=== PATIENT | female | born 1995 | race Two or more races ===

== ENCOUNTER 2018-12-28 17:17 | Observation (INO) | payer SELFPAY ==
[2018-12-28 18:27] LABS: BILIRUBIN,URINE NEGATIVE (NEG); CLARITY,URINE CLEAR; COLOR,URINE YELLOW; NITRITE,URINE NEGATIVE (NEG); PH,URINE 6.5; PROTEIN,URINE NEGATIVE (NEG-TRACE)
[2018-12-28 18:43] LABS: BACTERIA,URINE FEW /HPF (0-FEW); RBC,URINE 0 /HPF (0-2); SQUAMOUS EPITHELIAL CELL,UR OCC /LPF
[2018-12-28] MEDS ORDERED: IV RINGERS,LACTATED 1000ML 1,000 ML IV PRN (19:30)
== END 2018-12-28 19:37 | disposition home or self-care (01) ==
LOC: 3 SO LND 17:17
PROVIDERS: ADMIT Obstetrics & Gynecology; ATTEND Obstetrics & Gynecology
DX: O62.9 Abnormality of forces of labor, unspecified (principal); O26.893 Other specified pregnancy related conditions, third trimester; K62.89 Other specified diseases of anus and rectum; Z3A.39 39 weeks gestation of pregnancy
CPT/HCPCS: 81001; 87086; G0378; G0379

== ENCOUNTER 2018-12-30 18:01 | Inpatient (IN) | payer SELFPAY ==
[~2018-12-30] VITALS: Ht 162.6 cm; Wt 65.8 kg
[2018-12-30] MEDS ORDERED: ONDANSETRON PF 4 MG/2 ML VIAL. IV PRN (18:15)
[2018-12-30] MEDS ORDERED: fentaNYL PF VIAL 100 MCG/2 ML VIAL IV PRN (18:15)
[2018-12-30] MEDS ORDERED: TERBUTALINE 1 MG/ML VIAL. SQ PRN (18:15)
[2018-12-30] MEDS ORDERED: ZOLPIDEM 5 MG TABLET. PO PRN (18:15)
[2018-12-30] MEDS ORDERED: CITRIC ACID/SODIUM CITRATE 30 ML SOLUTION. PO PRN (18:15)
[2018-12-30] MEDS ORDERED: ACETAMINOPHEN 325 MG TABLET. PO PRN (18:15)
[2018-12-30] MEDS ORDERED: OXYTOCIN 30 UNIT/500 ML PREMIX 500 ML IV PRN ×3 (18:15)
[2018-12-30] MEDS ORDERED: DOCUSATE SODIUM 283 MG/5 ML ENEMA. PR PRN (18:15)
[2018-12-30] MEDS ORDERED: LIDOCAINE 1% PF 30 ML VIAL. INJ PRN (18:15)
[2018-12-30] MEDS ORDERED: IBUPROFEN 400 MG TABLET. PO PRN (18:15)
[2018-12-30] MEDS ORDERED: 0.9 % SODIUM CHLORIDE 10 ML DISP.SYRIN. IV PRN (18:15)
[2018-12-30] MEDS ORDERED: NALBUPHINE 10 MG/ML AMPUL. IV PRN ×2 (18:15)
[2018-12-30] MEDS ORDERED: MAG HYDROX/ALUMINUM HYD/SIMETH 30 ML ORAL.SUSP PO PRN (18:15)
[2018-12-30 18:27] LABS: BILIRUBIN,URINE NEGATIVE (NEG); CLARITY,URINE CLEAR; COLOR,URINE AMBER; NITRITE,URINE NEGATIVE (NEG); PH,URINE 6.5; PROTEIN,URINE NEGATIVE (NEG-TRACE)
[2018-12-30] MEDS ORDERED: DINOPROSTONE 10 MG SUPP.VAG VG ONE (18:30)
[2018-12-30] MEDS: IV RINGERS,LACTATED 1000ML 1,000 ML IV SCH (18:51)
[2018-12-30 18:54] LABS: BACTERIA,URINE FEW /HPF (0-FEW); SQUAMOUS EPITHELIAL CELL,UR MOD /LPF
[2018-12-30 19:12] LABS: BASO % 0 % (0-3); EOS % 0 % (0-3); HEMOGLOBIN 8.9 g/dL (12.0-15.5); LYMPH % 28 % (24-48); MEAN CORPUSCULAR HEMOGLOBIN 21 pg (25-35); MEAN CORPUSCULAR HGB CONC 31 g/dL (31-37); MEAN CORPUSCULAR VOLUME 69 fL (79-100); MONO # 0.6 x10^3/uL (0.0-1.1); MONO % 5 % (0-9); NEUT # 7.2 x10^3/uL (1.8-7.7); NEUT % 67 % (31-73); PLATELET COUNT 365 x10^3/uL (140-400); RED CELL DISTRIBUTION WIDTH 19.6 % (11.5-14.5); WHITE BLOOD COUNT 10.8 x10^3/uL (4.0-11.0)
[2018-12-30 19:30] VITALS: BP 121/70
[2018-12-30] MEDS ORDERED: diphenhydrAMINE HCL 25 MG CAPSULE PO PRN (19:30)
[2018-12-30 19:45] LABS: ANISOCYTOSIS SLIGHT; HYPOCHROMIA MOD; MICROCYTOSIS MARKED; PLT ESTIMATE ADEQUATE (ADEQUATE)
[2018-12-31] MEDS: IV RINGERS,LACTATED 1000ML 1,000 ML IV SCH (05:40)
[2018-12-31] MEDS ORDERED: L&D EPIDURAL SYRINGE 50 ML ONE ×2 (07:30→10:53)
[2018-12-31] MEDS ORDERED: ROPIVacaine 0.2% PF 10 ML VIAL. ONE ×2 (07:30→08:00)
[2018-12-31] MEDS ORDERED: L&D EPIDURAL 50 ML SYRINGE. ONE (08:00)
--- NOTE | 2018-12-31 09:54 | PDOC1 ---
OB - History Hx of Present Care: Good Care Ultrasounds: Normal mid trimester US Obstetrical Complications: None Medical Complications: None Past Family/Social History * Past Medical, Surgical, Family and Obstetric Histories reviewed from chart. Rubella: Immune RPR/VDRL: Negative GBS Status: Positive HBsAG: Negative OB - Chief Complaint & HPI Date of Admission: Date of Admission: Dec 30, 2018 at 18:01 Chief Complaint/History : 1 Para: 0 EGA: 39 Reason for admission: induction of labor Indication for induction: maternal discomfort Admission Nurse Assessment Rev: Yes OB - Admission Exam Physical Exam Vitals: VS - Last 72 Hours, by Label Date Time Temp Pulse Resp B/P (MAP) Pulse Ox O2 Delivery O2 Flow Rate FiO2 12/30/18 19:30 97.7 99 18 121/70 (87) Room Air 97.7 HEENT: Normal Heart: Regular Rate Lungs: Clear Abdomen: Gravid, Non tender, Soft Extremities: Edema Reflexes: Normal Cervical Dilatation: 2cm Effacement: 75% Station: -3 Membranes: Intact Heart Rate: Normal Accelerations: Accelerations Present Decelerations: No decelerations Contractions on Admission: >10 Minutes Apart Text A: 39 wks IUP GBS positive IOL secondary maternal discomforts of P: Admit for cervidil induction, then pitocin in am with Pen G prophylaxis. ROSE CASTELLON Jr, MD Dec 31, 2018 09:54
[2018-12-31] MEDS ORDERED: IV RINGERS,LACTATED 1000ML 1,000 ML IV SCH (10:54)
[2018-12-31] MEDS ORDERED: NALOXONE 0.4 MG/ML VIAL. IV PRN (11:00)
[2018-12-31] MEDS ORDERED: ePHEDrine PF IN SALINE 50 MG/10 ML SYRINGE. IV PRN (11:00)
[2018-12-31] MEDS ORDERED: L&D EPIDURAL CASSETTE 100 ML EPID PRN (11:00)
[2018-12-31] MEDS ORDERED: ROPIVacaine 0.2% IN 0.9%NACL PF 40 MG/20 ML DISP.SYRIN. EPID PRN (11:00)
--- NOTE | 2018-12-31 12:20 | PDOC ---
VAGINAL DELIVERY DATE DATE: 12/31/18 TIME: 12:19 : 1 Para: 1 EGA: 39 VAGINAL DELIVERY: VTX VACCUM ASSISTED: No PLACENTA: Spontaneous 8/9 SEX: Male WEIGHT Weight [ 3390 gm] Nuchal Cord: Yes, Times 1 Amniotic Fluid: Clear PAIN: Epidural EPISIOTOMY: No EXTENSION: Yes (2nd degree midline laceration) REPAIRED WITH 2-0 vycril EBL 300 ml COMPLICATIONS none CONDITION pt. stable Signs of Intrauterine Infectio: None Shoulder Dystocia: No ROSE CASTELLON Jr, MD Dec 31, 2018 12:20
[2018-12-31] MEDS ORDERED: MMR per PROTOCOL. MC PRN (12:30)
[2018-12-31] MEDS ORDERED: PHENYLEPH/MINERAL OIL/PETROLAT RECTAL OINTMENT TUBE. RC PRN (12:30)
[2018-12-31] MEDS ORDERED: MAG HYDROX/ALUMINUM HYD/SIMETH 30 ML ORAL.SUSP PO PRN (12:30)
[2018-12-31] MEDS ORDERED: 0.9 % SODIUM CHLORIDE 10 ML DISP.SYRIN. IV PRN (12:30)
[2018-12-31] MEDS ORDERED: SIMETHICONE 80 MG TAB.CHEW PO PRN (12:30)
[2018-12-31] MEDS ORDERED: ACETAMINOPHEN 325 MG TABLET. PO PRN (12:30)
[2018-12-31] MEDS ORDERED: HYDROCORTISONE 1% TOPICAL OINTMENT 30GM TUBE. TP PRN (12:30)
[2018-12-31] MEDS ORDERED: ZOLPIDEM 5 MG TABLET. PO PRN (12:30)
[2018-12-31] MEDS ORDERED: oxyCODONE/APAP 5/325 1 TAB TABLET PO PRN (12:30)
[2018-12-31] MEDS ORDERED: BENZOCAINE 20% TOPICAL AEROSOL SPRAY 57GM CAN. TP PRN (12:30)
[2018-12-31] MEDS ORDERED: MAGNESIUM HYDROXIDE 2,400 MG/30 ML ORAL.SUSP. PO PRN (12:30)
[2018-12-31] MEDS ORDERED: diphenhydrAMINE HCL 25 MG CAPSULE PO PRN (12:30)
[2018-12-31] MEDS ORDERED: OXYTOCIN 30 UNIT/500 ML PREMIX 500 ML IV PRN (12:30)
[2018-12-31] MEDS: IBUPROFEN 400 MG TABLET. PO PRN ×2 (14:31→22:59)
[2018-12-31] MEDS ORDERED: L&D EPIDURAL SYRINGE 50 ML EPID PRN (14:45)
[2018-12-31 15:04] VITALS: BP 109/68
[2018-12-31 16:00] VITALS: BP 114/63
[2018-12-31 20:40] VITALS: BP 100/64
[2018-12-31 23:50] VITALS: BP 102/46
[2019-01-01 05:51] LABS: BASO % 0 % (0-3); EOS % 0 % (0-3); HEMATOCRIT 21.7 % (36.0-47.0); LYMPH # 2.9 x10^3/uL (1.0-4.8); LYMPH % 21 % (24-48); MEAN CORPUSCULAR HEMOGLOBIN 22 pg (25-35); MEAN CORPUSCULAR HGB CONC 32 g/dL (31-37); MEAN CORPUSCULAR VOLUME 71 fL (79-100); MONO # 0.8 x10^3/uL (0.0-1.1); MONO % 6 % (0-9); NEUT # 10.1 x10^3/uL (1.8-7.7); NEUT % 72 % (31-73); PLATELET COUNT 283 x10^3/uL (140-400); RED BLOOD COUNT 3.07 x10^6/uL (3.50-5.40); WHITE BLOOD COUNT 13.9 x10^3/uL (4.0-11.0)
[2019-01-01 05:53] VITALS: BP 82/39
[2019-01-01 06:17] LABS: HEMOGLOBIN 6.9 g/dL (12.0-15.5)
[2019-01-01 08:27] VITALS: BP 100/59
[2019-01-01] MEDS: FERROUS SULFATE 325 MG TABLET. PO SCH ×2 (09:24→22:25)
[2019-01-01] MEDS: IBUPROFEN 400 MG TABLET. PO PRN ×2 (11:58→22:25)
[2019-01-01 12:02] VITALS: BP 103/64
--- NOTE | 2019-01-01 13:30 | PDOC ---
OB Progress Note Date of Service 01/01/19 Time of Evaluation 1330 Notes Pt. feeling well. Pain controlled. No complaints. Lab Laboratory Tests Test 12/30/18 18:15 12/30/18 18:46 01/01/19 05:17 Urine Collection Type Unknown Urine Color Marie Urine Clarity Clear Urine pH 6.5 Urine Specific [place] 1.020 Urine Protein Negative mg/dL (NEG-TRACE) Urine Glucose (UA) Negative mg/dL (NEG) Urine Ketones (Stick) Negative mg/dL (NEG) Urine Blood Negative (NEG) Urine Nitrite Negative (NEG) Urine Bilirubin Negative (NEG) Urine Urobilinogen Dipstick 1.0 mg/dL (0.2 mg/dL) Urine Leukocyte Esterase Moderate (NEG) Urine RBC 3-5 /HPF (0-2) Urine WBC 5-10 /HPF (0-4) Urine Squamous Epithelial Cells Mod /LPF Urine Bacteria Few /HPF (0-FEW) Urine Mucus Mod /LPF White Blood Count 10.8 x10^3/uL (4.0-11.0) 13.9 x10^3/uL (4.0-11.0) Red Blood Count 4.20 x10^6/uL (3.50-5.40) 3.07 x10^6/uL (3.50-5.40) Hemoglobin 8.9 g/dL (12.0-15.5) 6.9 g/dL (12.0-15.5) Hematocrit 29.0 % (36.0-47.0) 21.7 % (36.0-47.0) Mean Corpuscular Volume 69 fL (79-100) 71 fL (79-100) Mean Corpuscular Hemoglobin 21 pg (25-35) 22 pg (25-35) Mean Corpuscular Hemoglobin Concent 31 g/dL (31-37) 32 g/dL (31-37) Red Cell Distribution Width 19.6 % (11.5-14.5) 20.0 % (11.5-14.5) Platelet Count 365 x10^3/uL (140-400) 283 x10^3/uL (140-400) Neutrophils (%) (Auto) 67 % (31-73) 72 % (31-73) Lymphocytes (%) (Auto) 28 % (24-48) 21 % (24-48) Monocytes (%) (Auto) 5 % (0-9) 6 % (0-9) Eosinophils (%) (Auto) 0 % (0-3) 0 % (0-3) Basophils (%) (Auto) 0 % (0-3) 0 % (0-3) Neutrophils # (Auto) 7.2 x10^3/uL (1.8-7.7) 10.1 x10^3/uL (1.8-7.7) Lymphocytes # (Auto) 3.0 x10^3/uL (1.0-4.8) 2.9 x10^3/uL (1.0-4.8) Monocytes # (Auto) 0.6 x10^3/uL (0.0-1.1) 0.8 x10^3/uL (0.0-1.1) Eosinophils # (Auto) 0.0 x10^3/uL (0.0-0.7) 0.0 x10^3/uL (0.0-0.7) Basophils # (Auto) 0.0 x10^3/uL (0.0-0.2) 0.0 x10^3/uL (0.0-0.2) Platelet Estimate Adequate (ADEQUATE) Hypochromasia Mod Anisocytosis Slight Microcytosis Marked Treponema pallidum Antibody Nonreactive (Nonreactive) Laboratory Tests Test 01/01/19 05:17 White Blood Count 13.9 x10^3/uL (4.0-11.0) Red Blood Count 3.07 x10^6/uL (3.50-5.40) Hemoglobin 6.9 g/dL (12.0-15.5) Hematocrit 21.7 % (36.0-47.0) Mean Corpuscular Volume 71 fL (79-100) Mean Corpuscular Hemoglobin 22 pg (25-35) Mean Corpuscular Hemoglobin Concent 32 g/dL (31-37) Red Cell Distribution Width 20.0 % (11.5-14.5) Platelet Count 283 x10^3/uL (140-400) Neutrophils (%) (Auto) 72 % (31-73) Lymphocytes (%) (Auto) 21 % (24-48) Monocytes (%) (Auto) 6 % (0-9) Eosinophils (%) (Auto) 0 % (0-3) Basophils (%) (Auto) 0 % (0-3) Neutrophils # (Auto) 10.1 x10^3/uL (1.8-7.7) Lymphocytes # (Auto) 2.9 x10^3/uL (1.0-4.8) Monocytes # (Auto) 0.8 x10^3/uL (0.0-1.1) Eosinophils # (Auto) 0.0 x10^3/uL (0.0-0.7) Basophils # (Auto) 0.0 x10^3/uL (0.0-0.2) Medications Current Medications Sodium Chloride (Normal Saline Flush) 3 ml QSHIFT PRN IV AFTER MEDS AND BLOOD DRAWS; Start 12/30/18 at 18:15; Stop 12/31/18 at 12:22; Status DC Ringer's Solution 1,000 ml @ 125 mls/hr Q8H IV Last administered on 12/31/18at 05:40; Start 12/30/18 at 18:06; Stop 12/31/18 at 12:25; Status DC Nalbuphine HCl (Nubain) 5 mg PRN Q1HR PRN IV Mild to moderate labor pain; Start 12/30/18 at 18:15 Nalbuphine HCl (Nubain) 10 mg PRN Q1HR PRN IV Severe labor pain; Start 12/30/18 at 18:15 Fentanyl Citrate (Fentanyl 2ml Vial) 50 mcg PRN Q30MIN PRN IV Mild to moderate pain; Start 12/30/18 at 18:15 Acetaminophen (Tylenol) 650 mg PRN Q6HRS PRN PO MILD PAIN / TEMP; Start 12/30/18 at 18:15; Stop 12/31/18 at 12:25; Status DC Ondansetron HCl (Zofran) 4 mg PRN Q4HRS PRN IV NAUSEA/VOMITING; Start 12/30/18 at 18:15 Al Hydroxide/Mg Hydroxide (Mylanta Plus Xs) 30 ml PRN Q4HRS PRN PO HEARTBURN / GAS; Start 12/30/18 at 18:15; Stop 12/31/18 at 12:25; Status DC Citric Acid/ Sodium Citrate (Bicitra) 30 ml 1X PRN PRN PO DYSPEPSIA; Start 12/30/18 at 18:15; Stop 12/31/18 at 18:14; Status DC Zolpidem Tartrate (Ambien) 5 mg PRN QHS PRN PO INSOMNIA; Start 12/30/18 at 18:15; Stop 12/31/18 at 12:24; Status DC Terbutaline Sulfate (Brethine) 0.25 mg 1X PRN PRN SQ SEE COMMENTS; Start 12/30/18 at 18:15; Stop 12/31/18 at 18:14; Status DC Lidocaine HCl (Xylocaine 1% Pf 30ml Vial) 30 ml 1X PRN PRN INJ SEE COMMENTS; Start 12/30/18 at 18:15; Stop 01/01/19 at 18:14 Oxytocin/Sodium Chloride 500 ml @ 0 mls/hr CONT PRN IV SEE I/O RECORD Last administered on 12/31/18at 05:40; Start 12/30/18 at 18:15; Stop 12/31/18 at 12:25; Status DC Oxytocin/Sodium Chloride 500 ml @ 0 mls/hr CONT PRN IV SEE I/O RECORD; Start 12/30/18 at 18:15; Stop 12/31/18 at 12:25; Status DC Oxytocin/Sodium Chloride 500 ml @ 0 mls/hr CONT PRN PRN IV Post delivery bleeding; Start 12/30/18 at 18:15 Ibuprofen (Motrin) 800 mg PRN Q6HRS PRN PO PAIN; Start 12/30/18 at 18:15; Stop 12/31/18 at 12:23; Status DC Docusate Sodium (Enemeez) 283 mg PRN DAILY PRN RI CONSTIPATION; Start 12/30/18 at 18:15 Dinoprostone (Cervidil) 10 mg 1X ONCE VG Last administered on 12/30/18at 19:12; Start 12/30/18 at 18:30; Stop 12/30/18 at 18:31; Status DC Diphenhydramine HCl (Benadryl) 25 mg PRN QHS PRN PO INSOMNIA Last administered on 12/31/18at 00:53; Start 12/30/18 at 19:30 Ropivacaine (Naropin 0.2%) 10 ml STK-MED ONCE .ROUTE ; Start 12/31/18 at 07:30; Stop 12/31/18 at 07:31; Status DC Fentanyl Citrate 50 ml @ As Directed STK-MED ONCE .ROUTE ; Start 12/31/18 at 07:30; Stop 12/31/18 at 07:31; Status DC Fentanyl Citrate (Xghlcxgj-Fegwc-PC 3 Mcg-0.1%) 50 ml STK-MED ONCE .ROUTE ; Start 12/31/18 at 08:00; Stop 12/31/18 at 08:53; Status DC Ropivacaine (Naropin 0.2%) 10 ml STK-MED ONCE .ROUTE ; Start 12/31/18 at 08:00; Stop 12/31/18 at 08:53; Status DC Fentanyl Citrate 50 ml @ As Directed STK-MED ONCE .ROUTE ; Start 12/31/18 at 10:53; Stop 12/31/18 at 10:53; Status DC Fentanyl Citrate 100 ml @ 14 mls/hr CONT PRN EPID PAIN; Start 12/31/18 at 11:00; Stop 01/01/19 at 09:59; Status DC Ringer's Solution 1,000 ml @ 125 mls/hr Q8H IV ; Start 12/31/18 at 10:54 Ephedrine Sulfate (ePHEDrine PF IN SALINE SYRINGE) 10 mg PRN Q2MIN PRN IV IF SBP<90; Start 12/31/18 at 11:00 Naloxone HCl (Narcan) 0.04 mg PRN Q1MIN PRN IV SEE COMMENTS; Start 12/31/18 at 11:00 Ropivacaine/ Sodium Chloride (ROPIVacaine 0.2% - 0.9%NACL PF) 40 mg PRN 1X PRN EPID SEE COMMENTS; Start 12/31/18 at 11:00 Sodium Chloride (Normal Saline Flush) 10 ml QSHIFT PRN IV AFTER MEDS AND BLOOD DRAWS; Start 12/31/18 at 12:30 Oxytocin/Sodium Chloride 500 ml @ 62.5 mls/hr CONT PRN IV SEE I/O RECORD; Start 12/31/18 at 12:30; Stop 12/31/18 at 20:29; Status DC Acetaminophen (Tylenol) 650 mg PRN Q6HRS PRN PO MILD PAIN / TEMP; Start 12/31/18 at 12:30 Ibuprofen (Motrin) 800 mg PRN Q8HRS PRN PO INFLAMMATION/PAIN PREVENTION Last administered on 01/01/19at 11:58; Start 12/31/18 at 12:30 Docusate Sodium (Colace) 100 mg PRN BID PRN PO CONSTIPATION; Start 12/31/18 at 12:30 Magnesium Hydroxide (Milk Of Magnesia) 2,400 mg PRN DAILY PRN PO CONSTIPATION; Start 12/31/18 at 12:30 Al Hydroxide/Mg Hydroxide (Mylanta Plus Xs) 30 ml PRN Q4HRS PRN PO HEARTBURN / GAS; Start 12/31/18 at 12:30 Simethicone (Gas-X) 80 mg PRN AFTMEALHC PRN PO GAS / BLOATING; Start 12/31/18 at 12:30 Diphenhydramine HCl (Benadryl) 25 mg PRN Q6HRS PRN PO ITCHING; Start 12/31/18 at 12:30 Benzocaine (Americaine) 1 spray PRN QID PRN TP TOPICAL PAIN Last administered on 12/31/18at 14:30; Start 12/31/18 at 12:30 Phenyleph/Shark Oil/Min Oil/Petrol (Preparation H) 1 aravind PRN QID PRN RC RECTAL PAIN; Start 12/31/18 at 12:30 Hydrocortisone (Cortaid) 1 aravind PRN QID PRN TP PERINEAL PAIN; Start 12/31/18 at 12:30 Ferrous Sulfate (Feosol) 325 mg BIDWMEALS PO Last administered on 01/01/19at 09:24; Start 12/31/18 at 17:00 Zolpidem Tartrate (Ambien) 5 mg PRN QHS PRN PO INSOMNIA, MAY REPEAT X1; Start 12/31/18 at 12:30 Info (Do NOT chart on this placeholder) 1 ea 1X PRN PRN MC SEE COMMENTS; Start 12/31/18 at 12:30 Info (Do NOT chart on this placeholder) 1 ea 1X PRN PRN MC SEE COMMENTS; Start 12/31/18 at 12:30 Oxycodone/ Acetaminophen (Percocet 5/325) 2 tab PRN Q4HRS PRN PO MODERATE PAIN, SEVERE PAIN; Start 12/31/18 at 12:30 Fentanyl Citrate 50 ml @ 14 mls/hr CONT PRN EPID PAIN Last administered on 12/31/18at 14:51; Start 12/31/18 at 14:45 Exam Abd: soft, non tender, fundus firm Assessment PPD#1 s/p Plan of Care: Continue current Tx, Mgmt ROSE CASTELLON Jr, MD Jan 01, 2019 13:30
[2019-01-01 20:15] VITALS: BP 104/47
[2019-01-01] MEDS: DOCUSATE SODIUM 100 MG CAPSULE. PO PRN (22:25)
[2019-01-02 06:10] VITALS: BP 100/46
[2019-01-02] MEDS: FERROUS SULFATE 325 MG TABLET. PO SCH ×2 (08:12→17:03)
[2019-01-02] MEDS: DOCUSATE SODIUM 100 MG CAPSULE. PO PRN (08:12)
[2019-01-02 08:55] VITALS: BP 99/55
--- NOTE | 2019-01-02 09:09 | PDOC3 ---
OB DISCHARGE SUMMARY DATE OF ADMISSION: 12/30/18 DATE OF DISCHARGE: 01/02/19 REASON FOR ADMISSION: Induction of labor INTRAPARTUM PROCEDURES: Spontanous Vag Deliv DISCHARGE DIAGNOSIS: Term Delivered DISCHARGE INFORMATION: Activity (ad anjelica), Diet (regular), Instructions (pelvic rest x 6 wks) HOSPITAL COURSE Term gestation delivered vaginally without complication ORSE CASTELLON Jr, MD Jan 02, 2019 09:09
[2019-01-02] MEDS ORDERED: IBUP-1027 PO (09:10)
--- NOTE | 2019-01-02 09:10 | DISCH ---
DISCHARGE INSTRUCTIONS Condition on Discharge Condition on Discharge: Stable Activity After Discharge Activity Instructions for Disc: Activity as tolerated Lifting Instructions after Dis: No heavy lifting Driving Instructions after Dis: Do not drive today Diet after Discharge Diet after Discharge: Regular Contacting the DRRobel after DC Call your doctor for: Concerns you may have Follow-Up Follow up with: Yuli in 6 wks ROSE CASTELLON Jr, MD Jan 02, 2019 09:10
[2019-01-02] MEDS: IBUPROFEN 400 MG TABLET. PO PRN ×2 (12:18→18:49)
[2019-01-02 14:12] VITALS: BP 98/59
--- NOTE | 2019-01-02 17:10 | NUR ---
Discharge instructions reviewed with pt and SO. Verbalize understanding. Pt in stable condition. VSS. Up and about. Tolerating food and fluid. Fundus firm, lochia decreasing. . Bonding well with .
[2019-01-02 19:05] VITALS: BP 108/57
--- NOTE | 2019-01-02 19:08 | NUR ---
Discharged to boarder status.
== END 2019-01-02 19:10 | disposition home or self-care (01) | DRG 807 ==
LOC: 3 SO LND 18:01 → 3 NORTH 12-31 16:00
PROVIDERS: ADMIT Obstetrics & Gynecology; ATTEND Obstetrics & Gynecology
PROC: 10E0XZZ Delivery of Products of Conception, External Approach (ICD-10-PCS; principal; 2018-12-31)
PROC: 0KQM0ZZ Repair Perineum Muscle, Open Approach (ICD-10-PCS; 2018-12-31)
PROC: 3E0R3BZ Introduction of Anesthetic Agent into Spinal Canal, Percutaneous Approach (ICD-10-PCS; 2018-12-31)
PROC: 00HU33Z Insertion of Infusion Device into Spinal Canal, Percutaneous Approach (ICD-10-PCS; 2018-12-31)
DX: O99.824 Streptococcus B carrier state complicating childbirth (principal); Z37.0 Single live birth; O70.1 Second degree perineal laceration during delivery; O69.81X0 Labor and delivery complicated by cord around neck, without compression, not applicable or unspecified; Z3A.39 39 weeks gestation of pregnancy
CPT/HCPCS: 36415; 81001; 85025; 86592; 86850; 86900; 86901; 87086; J2590; J2795; J7120; Q0163; G0378

== ENCOUNTER 2021-02-08 11:53 | Observation (INO) | payer SELFPAY ==
[~2021-02-08 11:53] MED LIST: IBUP-1027 PO
[2021-02-08] MEDS ORDERED: IV RINGERS,LACTATED 1000ML 1,000 ML IV SCH (12:15)
--- NOTE | 2021-02-08 12:36 | PDOC1 ---
FINANCIAL SERVICES TECHNICIAN H&P Date of Admission: Date of Admission: Feb 08, 2021 at 11:53 History of Present Illness: EDC: 05/27/21 LMP: 07/17/20 25y @ 24.4 by 18wk u/s presents to L&D with LOF. The pt states that she noticed the leaking at work. This has happened before. This time it seemed like a moderate amt that wet the front of her pants. The pt is not currently feeling ctxs. PMH: Denies PSH: Denies Meds: PNV, Fe All: NKDA OBHx: SAB x 1, TSVD x 1 SH: no tob, no EtOH FH: noncontributory Allergies: Coded Allergies: No Known Drug Allergies (Unverified , 12/28/18) Physical Exam: PE: GENERAL: No apparent distress. Alert and oriented. HEENT: Head normocephalic, atraumatic. NECK: Supple LUNGS: Clear to auscultation. HEART: RRR, S1, S2 present, pulses intact ABDOMEN: Soft, positive bowel sounds. EXTREMITIES: No cyanosis or edema. NEUROLOGIC: Normal speech, normal tone PSYCHIATRIC: Normal affect, normal mood. SKIN: No ulceration. FHT: 150s +acels/no decels/mLTV Staples: quiet SVE: vis closed Assessment & Plan: A/P 25y @ 24.4 by 18wk u/s 1.) PPROM neg pooling, pos nitrizine. Aminosure neg. U/s performed to reveal an GAY of 15.4. 2.) Fetus cat I FHT 3.) GBS unk 4.) Pt d/c home ZARINA HEMPHILL MD Feb 08, 2021 12:36
[2021-02-08 12:51] LABS: AMNIO PT NEGATIVE
[2021-02-08 12:57] LABS: BILIRUBIN,URINE NEGATIVE (NEG); CLARITY,URINE CLEAR; COLOR,URINE YELLOW; NITRITE,URINE NEGATIVE (NEG); PROTEIN,URINE NEGATIVE (NEG-TRACE)
[2021-02-08 13:03] LABS: BACTERIA,URINE FEW /HPF (0-FEW)
[2021-02-08 13:04] LABS: RBC,URINE OCC /HPF (0-2)
--- NOTE | 2021-02-08 14:01 | RAD ---
LIMITED OB ULTRASOUND STUDY Clinical indications: GAY and growth. COMPARISON: None available. Findings: A single intrauterine fetus is seen in cephalic position. heart rate is 131 beats per minute. BPD is 5.85 cm which equals 24 weeks 0 days. HC is 22.37 cm which equals 24 weeks 3 days. AC is 20.04 cm which equals 24 weeks 5 days. FL is 4.87 cm which equals 26 weeks 3 days. Average gestational age by ultrasound is 24 weeks 6 days +/- 15 days with an EDC of May 25, 2021. Estimated weight is 1 lbs and 12 oz. anatomy was not evaluated. GAY using the four quadrant method is 15.4 cm. Cervical length is 4.5 cm. S\D ratio is [ ]. A grade 0 posterior placenta is seen. No placenta previa and no placenta abruptio is identified. The maternal ovaries are not visualized. Impression: Single IUP in cephalic presentation with average gestational age of 24 weeks 6 days. Electronically signed by: Eugene Morales MD (02/08/2021 1:59 PM) [id number]
== END 2021-02-08 13:56 | disposition home or self-care (01) ==
LOC: 3 SO LND 11:53
PROVIDERS: ADMIT Obstetrics & Gynecology; ATTEND Obstetrics & Gynecology
DX: O42.912 Preterm premature rupture of membranes, unspecified as to length of time between rupture and onset of labor, second trimester (principal); Z3A.24 24 weeks gestation of pregnancy; Z79.899 Other long term (current) drug therapy; Z98.890 Other specified postprocedural states
CPT/HCPCS: 36415; 59025; 76815; 81001; 84112; 87086; G0378; G0379

== ENCOUNTER 2021-04-28 15:20 | Observation (INO) | payer SELFPAY ==
[2021-04-28] MEDS ORDERED: IV RINGERS,LACTATED 1000ML 1,000 ML IV SCH (16:00)
[2021-04-28 16:10] LABS: BILIRUBIN,URINE NEGATIVE (NEG); CLARITY,URINE CLOUDY; COLOR,URINE AMBER; NITRITE,URINE NEGATIVE (NEG); PH,URINE 6.5 (<5.0-8.0); PROTEIN,URINE NEGATIVE (NEG-TRACE)
[2021-04-28 16:17] LABS: AMNIO PT NEGATIVE
[2021-04-28 16:19] LABS: BACTERIA,URINE FEW /HPF (0-FEW)
== END 2021-04-28 17:00 | disposition home or self-care (01) ==
LOC: 3 SO LND 15:20
PROVIDERS: ADMIT Obstetrics & Gynecology; ATTEND Obstetrics & Gynecology
DX: O42.913 Preterm premature rupture of membranes, unspecified as to length of time between rupture and onset of labor, third trimester (principal); Z3A.35 35 weeks gestation of pregnancy; Z79.899 Other long term (current) drug therapy
CPT/HCPCS: 36415; 59025; 81001; 84112; 87086; G0378; G0379

== ENCOUNTER 2021-05-12 06:30 | Inpatient (IN) | payer SELFPAY ==
[~2021-05-12] VITALS: Ht 162.6 cm; Wt 73.0 kg
[2021-05-12] MEDS ORDERED: IV RINGERS,LACTATED 1000ML 1,000 ML IV PRN (06:45)
[2021-05-12 07:19] LABS: BILIRUBIN,URINE NEGATIVE (NEG); CLARITY,URINE CLEAR; COLOR,URINE YELLOW; NITRITE,URINE NEGATIVE (NEG); PROTEIN,URINE TRACE mg/dL (NEG-TRACE); UROBILINOGEN,URINE 0.2 mg/dL (0.2 mg/dL)
[2021-05-12 07:20] LABS: BACTERIA,URINE MODERATE /HPF (0-FEW); RBC,URINE 0 /HPF (0-2); WBC,URINE OCC /HPF (0-4)
[2021-05-12] MEDS ORDERED: fentaNYL PF VIAL 100 MCG/2 ML VIAL IVP PRN (10:15)
[2021-05-12] MEDS ORDERED: TERBUTALINE 1 MG/ML VIAL. SQ PRN (10:15)
[2021-05-12] MEDS ORDERED: BUTORPHANOL 2 MG/ML VIAL. IVP PRN ×2 (10:15)
[2021-05-12] MEDS ORDERED: LIDOCAINE 1% PF 30 ML VIAL. INJ PRN (10:15)
[2021-05-12] MEDS ORDERED: 0.9 % SODIUM CHLORIDE 10 ML DISP.SYRIN. IV PRN ×2 (10:15→19:15)
[2021-05-12] MEDS ORDERED: OXYTOCIN 30 UNIT/500 ML PREMIX 500 ML IV PRN ×3 (10:15→19:15)
[2021-05-12 10:19] LABS: BASO % 0 % (0-3); EOS % 0 % (0-3); HEMATOCRIT 23.3 % (36.0-47.0); LYMPH # 1.6 x10^3/uL (1.0-4.8); LYMPH % 15 % (24-48); MEAN CORPUSCULAR HEMOGLOBIN 18 pg (25-35); MEAN CORPUSCULAR HGB CONC 30 g/dL (31-37); MEAN CORPUSCULAR VOLUME 61 fL (79-100); MONO # 0.5 x10^3/uL (0.0-1.1); MONO % 4 % (0-9); NEUT # 8.8 x10^3/uL (1.8-7.7); NEUT % 81 % (31-73); PLATELET COUNT 253 x10^3/uL (140-400); RED BLOOD COUNT 3.82 x10^6/uL (3.50-5.40); WHITE BLOOD COUNT 10.8 x10^3/uL (4.0-11.0)
[2021-05-12] MEDS ORDERED: L&D EPIDURAL SYRINGE 0 ML ONE (10:42)
[2021-05-12] MEDS ORDERED: ROPIVacaine 0.2% PF 10 ML VIAL. ONE ×2 (10:42→11:00)
[2021-05-12] MEDS ORDERED: L&D EPIDURAL 50 ML SYRINGE. ONE (11:00)
[2021-05-12] MEDS ORDERED: OXYTOCIN PREMIX 30 UNIT/500 ML NS BAG. IV ONE (11:00)
[2021-05-12] MEDS ORDERED: LIDOCAINE 2% PF 5 ML VIAL. ONE (11:40)
[2021-05-12] MEDS: IV RINGERS,LACTATED 1000ML 1,000 ML IV SCH ×2 (11:52→18:15)
[2021-05-12] MEDS ORDERED: BUPIVACAINE MPF 0.25% 30 ML VIAL. ONE (12:15)
[2021-05-12] MEDS ORDERED: L&D EPIDURAL SYRINGE 50 ML ONE (14:17)
--- NOTE | 2021-05-12 16:21 | PDOC1 ---
DOUGH SHEETER H&P Date of Admission: Date of Admission: May 12, 2021 at 08:53 History of Present Illness: [id number] presents at 37.6 (18w) with complaints of LOF @ 0700 and UCs. Leaking clear, non-odorous fluid. SVE upon arrival 1cm, posterior - with progressive change to 3cm. Uncomplicated . Denies complications with previous /labor/delivery. Pelvis proven to 6lb 11oz. PMH unremarkable. Desires EHSAN for pain management. Desires BTL. Otherwise denies complaints. Pertinent labs: A+, ab neg RPR NR RI VZI Hep B/C Neg HIV Neg GCT 111 GBS Neg H&H: 7.0/23.3 Past Medical History: PMH: Unremarkable Cardiovascular: No pertinent hx Pulmonary: No pertinent hx GI: No pertinent hx Heme/Onc: No pertinent hx Hepatobiliary: No pertinent hx Psych: No pertinent hx Rheumatologic: No pertinent hx Infectious disease: No pertinent hx ENT: No pertinent hx Renal/: No pertinent hx Endocrine: No pertinent hx Dermatology: No pertinent hx Grav: 3 Para: 1 Past Surgical History: Negative Social History: Smoke: No ALCOHOL: none Drugs: None Medications: Meds: Current Medications Medications (Trade) Dose Ordered Sig/Fariba Route PRN Reason Start Time Stop Time Status Last Admin Dose Admin Ringer's Solution 1,000 ml @ 125 mls/hr Q8H IV 05/12/21 10:15 05/12/21 11:52 Butorphanol Tartrate (Stadol) 2 mg PRN Q1HR PRN IVP Severe labor pain 05/12/21 10:15 05/12/21 11:52 Allergies: Coded Allergies: No Known Drug Allergies (Unverified , 12/28/18) Physical Exam: Vital Signs: Vital Signs Date Time Temp Pulse Resp B/P (MAP) Pulse Ox O2 Delivery O2 Flow Rate FiO2 05/12/21 11:52 20 Room Air PE: GENERAL: No apparent distress. Alert and oriented. HEENT: Head normocephalic, atraumatic. NECK: Supple LUNGS: Clear to auscultation. HEART: RRR, S1, S2 present, pulses intact ABDOMEN: Soft, positive bowel sounds. EXTREMITIES: No cyanosis or edema. NEUROLOGIC: Normal speech, normal tone PSYCHIATRIC: Normal affect, normal mood. SKIN: No ulceration. Labs: Laboratory Tests Test 05/12/21 06:50 05/12/21 09:25 05/12/21 10:30 Urine Collection Type Unknown Urine Color Yellow Urine Clarity Clear Urine pH 7.0 (<5.0-8.0) Urine Specific [place] 1.025 (1.000-1.030) Urine Protein Trace mg/dL (NEG-TRACE) Urine Glucose (UA) Negative mg/dL (NEG) Urine Ketones (Stick) Negative mg/dL (NEG) Urine Blood Negative (NEG) Urine Nitrite Negative (NEG) Urine Bilirubin Negative (NEG) Urine Urobilinogen Dipstick 0.2 mg/dL (0.2 mg/dL) Urine Leukocyte Esterase Negative (NEG) Urine RBC 0 /HPF (0-2) Urine WBC Occ /HPF (0-4) Urine Squamous Epithelial Cells Many /LPF Urine Bacteria Moderate /HPF (0-FEW) Urine Mucus Slight /LPF White Blood Count 10.8 x10^3/uL (4.0-11.0) Red Blood Count 3.82 x10^6/uL (3.50-5.40) Hemoglobin 7.0 g/dL (12.0-15.5) *L Hematocrit 23.3 % (36.0-47.0) L Mean Corpuscular Volume 61 fL (79-100) L Mean Corpuscular Hemoglobin 18 pg (25-35) L Mean Corpuscular Hemoglobin Concent 30 g/dL (31-37) L Red Cell Distribution Width 20.0 % (11.5-14.5) H Platelet Count 253 x10^3/uL (140-400) Neutrophils (%) (Auto) 81 % (31-73) H Lymphocytes (%) (Auto) 15 % (24-48) L Monocytes (%) (Auto) 4 % (0-9) Eosinophils (%) (Auto) 0 % (0-3) Basophils (%) (Auto) 0 % (0-3) Neutrophils # (Auto) 8.8 x10^3/uL (1.8-7.7) H Lymphocytes # (Auto) 1.6 x10^3/uL (1.0-4.8) Monocytes # (Auto) 0.5 x10^3/uL (0.0-1.1) Eosinophils # (Auto) 0.0 x10^3/uL (0.0-0.7) Basophils # (Auto) 0.0 x10^3/uL (0.0-0.2) Treponema pallidum Antibody Nonreactive (Nonreactive) SARS-CoV-2 Antigen (Rapid) Negative (NEGATIVE) Laboratory Tests 05/12/21 09:25 Laboratory Tests 05/12/21 09:25 Assessment & Plan: 25yo @ 37.6 weeks gestation 1. SROM 2. Spontaneous labor 3. GBS Neg 4. Cat I FHT 5. Anemia (7.0/23.3) 6. s/p Covid x 2, Flu, and TDaP (03/31) NICOLE HINES CNM May 12, 2021 16:21
--- NOTE | 2021-05-12 16:25 | PDOC4 ---
VAGINAL DELIVERY DATE DATE: 05/12/21 TIME: 16:22 TIME 1450 : 2 Para: 2 EDC: May 27, 2021 EGA: 37.6 VAGINAL DELIVERY: VTX VACCUM ASSISTED: No PLACENTA: Spontaneous 8/9 SEX: Female WEIGHT Weight [[id number]] Nuchal Cord: No Amniotic Fluid: Clear PAIN: Epidural EPISIOTOMY: No EXTENSION: No EBL 300mL COMPLICATIONS None CONDITION Both mother and infant are stable, anticipate routine PP course. ADDITIONAL NOTES 1st degree perineal lac, hemostatic, not repaired. Signs of Intrauterine Infectio: None Shoulder Dystocia: No DIAGNOSIS NICOLE HINES CNM May 12, 2021 16:25
[2021-05-12] MEDS ORDERED: TDaP (BOOSTRIX) per PROTOCOL. MC PRN (19:15)
[2021-05-12] MEDS ORDERED: HYDROCORTISONE 1% TOPICAL OINTMENT 30GM TUBE. TP PRN (19:15)
[2021-05-12] MEDS ORDERED: IBUPROFEN 400 MG TABLET. PO PRN (19:15)
[2021-05-12] MEDS ORDERED: MAGNESIUM HYDROXIDE 2,400 MG/30 ML ORAL.SUSP. PO PRN (19:15)
[2021-05-12] MEDS ORDERED: MAG HYDROX/ALUMINUM HYD/SIMETH 30 ML ORAL.SUSP PO PRN (19:15)
[2021-05-12] MEDS ORDERED: PHENYLEPH/MINERAL OIL/PETROLAT RECTAL OINTMENT TUBE. RC PRN (19:15)
[2021-05-12] MEDS ORDERED: SIMETHICONE 80 MG TAB.CHEW PO PRN (19:15)
[2021-05-12] MEDS ORDERED: BENZOCAINE 20% TOPICAL AEROSOL SPRAY 57GM CAN. TP PRN (19:15)
[2021-05-12] MEDS ORDERED: ACETAMINOPHEN 325 MG TABLET. PO PRN (19:15)
[2021-05-12] MEDS ORDERED: MMR per PROTOCOL. MC PRN (19:15)
[2021-05-12] MEDS ORDERED: diphenhydrAMINE HCL 25 MG CAPSULE PO PRN (19:15)
[2021-05-12 21:41] VITALS: BP 117/58
[2021-05-13] MEDS: IV RINGERS,LACTATED 1000ML 1,000 ML IV SCH ×3 (02:15→18:15)
[2021-05-13 02:36] VITALS: BP 118/56
[2021-05-13] MEDS: IBUPROFEN 400 MG TABLET. PO PRN ×3 (02:41→18:27)
[2021-05-13 05:13] VITALS: BP 110/53
[2021-05-13 07:00] VITALS: BP 132/57
[2021-05-13 07:30] LABS: BASO % 0 % (0-3); EOS % 0 % (0-3); HEMATOCRIT 22.5 % (36.0-47.0); LYMPH # 2.1 x10^3/uL (1.0-4.8); LYMPH % 18 % (24-48); MEAN CORPUSCULAR HEMOGLOBIN 18 pg (25-35); MEAN CORPUSCULAR HGB CONC 29 g/dL (31-37); MEAN CORPUSCULAR VOLUME 63 fL (79-100); MONO # 0.8 x10^3/uL (0.0-1.1); MONO % 7 % (0-9); NEUT # 9.1 x10^3/uL (1.8-7.7); NEUT % 76 % (31-73); PLATELET COUNT 229 x10^3/uL (140-400); RED BLOOD COUNT 3.55 x10^6/uL (3.50-5.40); RED CELL DISTRIBUTION WIDTH 19.6 % (11.5-14.5)
[2021-05-13 07:38] LABS: HEMOGLOBIN 6.4 g/dL (12.0-15.5)
[2021-05-13] MEDS ORDERED: FERROUS SULFATE 325 MG TABLET. PO SCH (08:00)
[2021-05-13] MEDS: MULTIVITAMIN with MINERAL TABLET. PO SCH (09:11)
[2021-05-13] MEDS: DOCUSATE SODIUM 100 MG CAPSULE. PO PRN ×2 (09:11→18:27)
[2021-05-13] MEDS: FERROUS SULFATE 325 MG TABLET. PO SCH ×3 (09:12→18:26)
[2021-05-13 13:05] VITALS: BP 121/69
--- NOTE | 2021-05-13 13:11 | PDOC ---
FISHING LURE ASSEMBLER PROGRESS NOTE Date of Service: DATE: 05/13/21 TIME: 13:08 Subjective: Doing well. Up to chair for lunch. Providing infant cares independently. Pain well managed with PO meds. Tolerates activity, voiding, and diet without difficulty. Denies CP, SOA, palpitations, or near syncope with activity. Requests early d/c. Otherwise denies complaints. Objective: Objective: FF @ U/1, scant lochia. Tr edema to bilateral LE. Vital Signs: Vital Signs Date Time Temp Pulse Resp B/P (MAP) Pulse Ox O2 Delivery O2 Flow Rate FiO2 05/12/21 11:52 20 Room Air 05/12/21 21:41 98.3 101 117/58 (77) 99 98.3 Vital Signs Date Time Temp Pulse Resp B/P (MAP) Pulse Ox O2 Delivery O2 Flow Rate FiO2 05/13/21 13:05 97.5 110 18 121/69 (86) Room Air 97.5 05/13/21 05:13 100 Labs: Laboratory Tests Test 05/13/21 07:00 White Blood Count 12.0 x10^3/uL (4.0-11.0) H Red Blood Count 3.55 x10^6/uL (3.50-5.40) Hemoglobin 6.4 g/dL (12.0-15.5) *L Hematocrit 22.5 % (36.0-47.0) L Mean Corpuscular Volume 63 fL (79-100) L Mean Corpuscular Hemoglobin 18 pg (25-35) L Mean Corpuscular Hemoglobin Concent 29 g/dL (31-37) L Red Cell Distribution Width 19.6 % (11.5-14.5) H Platelet Count 229 x10^3/uL (140-400) Neutrophils (%) (Auto) 76 % (31-73) H Lymphocytes (%) (Auto) 18 % (24-48) L Monocytes (%) (Auto) 7 % (0-9) Eosinophils (%) (Auto) 0 % (0-3) Basophils (%) (Auto) 0 % (0-3) Neutrophils # (Auto) 9.1 x10^3/uL (1.8-7.7) H Lymphocytes # (Auto) 2.1 x10^3/uL (1.0-4.8) Monocytes # (Auto) 0.8 x10^3/uL (0.0-1.1) Eosinophils # (Auto) 0.0 x10^3/uL (0.0-0.7) Basophils # (Auto) 0.0 x10^3/uL (0.0-0.2) Laboratory Tests 05/13/21 07:00 Laboratory Tests 05/13/21 07:00 Physical Exam: GENERAL: No apparent distress. Alert and oriented. HEENT: Head normocephalic, atraumatic. NECK: Supple LUNGS: Clear to auscultation. HEART: RRR, S1, S2 present, pulses intact ABDOMEN: Soft, positive bowel sounds. EXTREMITIES: No cyanosis or edema. NEUROLOGIC: Normal speech, normal tone PSYCHIATRIC: Normal affect, normal mood. SKIN: No ulceration. Assessment & Plan: Discussed concerns with early d/c 2/2 anemia. Pt. denies symptoms at present. Plan Venofer infusion today, repeat CBC in AM - reevaluate at that point for symptoms of anemia prior to d/c home. Pt. v/u of all. Amenable to POC. Anticipate d/c home tomorrow. NICOLE HINES CNM May 13, 2021 13:11
[2021-05-13] MEDS ORDERED: IRON SUCROSE COMPLEX 200 MG in IV NORMAL SALINE 100ML 100 ML IV ONE (14:00)
[2021-05-13 18:33] VITALS: BP 105/71
[2021-05-14] VITALS (9 sets, daily range): BP systolic 102–122; BP diastolic 52–66
[2021-05-14] MEDS: IBUPROFEN 400 MG TABLET. PO PRN ×2 (01:16→15:30)
[2021-05-14] MEDS ORDERED: SODIUM CHLORIDE 0.65% NASAL SPRAY 45ML BOTTLE. NS PRN (01:30)
[2021-05-14] MEDS: IV RINGERS,LACTATED 1000ML 1,000 ML IV SCH ×2 (02:15→10:15)
[2021-05-14] MEDS: DOCUSATE SODIUM 100 MG CAPSULE. PO PRN (06:44)
[2021-05-14 07:57] LABS: BASO % 0 % (0-3); EOS # 0.1 x10^3/uL (0.0-0.7); EOS % 1 % (0-3); LYMPH # 1.3 x10^3/uL (1.0-4.8); LYMPH % 16 % (24-48); MEAN CORPUSCULAR HGB CONC 29 g/dL (31-37); MONO # 0.6 x10^3/uL (0.0-1.1); MONO % 7 % (0-9); NEUT # 6.4 x10^3/uL (1.8-7.7); NEUT % 76 % (31-73)
[2021-05-14 08:05] LABS: RED BLOOD COUNT 3.47 x10^6/uL (3.50-5.40); WHITE BLOOD COUNT 8.6 x10^3/uL (4.0-11.0)
[2021-05-14 08:07] LABS: HEMATOCRIT 22.2 % (36.0-47.0); HEMOGLOBIN 6.5 g/dL (12.0-15.5); MEAN CORPUSCULAR HEMOGLOBIN 19 pg (25-35); MEAN CORPUSCULAR VOLUME 64 fL (79-100); PLATELET COUNT 211 x10^3/uL (140-400); RED CELL DISTRIBUTION WIDTH 19.8 % (11.5-14.5)
[2021-05-14] MEDS: FERROUS SULFATE 325 MG TABLET. PO SCH ×2 (09:04→15:30)
[2021-05-14] MEDS: MULTIVITAMIN with MINERAL TABLET. PO SCH (09:04)
[2021-05-14] MEDS ORDERED: DOCU-109 PO (13:26)
[2021-05-14] MEDS ORDERED: FERR325T14 PO (13:26)
[2021-05-14] MEDS ORDERED: IBUP-1060 PO (13:26)
--- NOTE | 2021-05-14 14:17 | PDOC ---
SENIOR C WEB DEVELOPER PROGRESS NOTE Date of Service: DATE: 05/14/21 TIME: 14:16 Subjective: Pt with good pain control. Sukhjinder PO. Voiding. Minimal lochia Objective: Vital Signs: Vital Signs Date Time Temp Pulse Resp B/P (MAP) Pulse Ox O2 Delivery O2 Flow Rate FiO2 05/13/21 07:00 97.3 80 18 132/57 (82) Room Air 97.3 05/14/21 01:19 99 Vital Signs Date Time Temp Pulse Resp B/P (MAP) Pulse Ox O2 Delivery O2 Flow Rate FiO2 05/14/21 13:02 97.7 88 18 107/53 97.7 05/14/21 10:35 100 Room Air Labs: Laboratory Tests Test 05/14/21 07:26 White Blood Count 8.6 x10^3/uL (4.0-11.0) Red Blood Count 3.47 x10^6/uL (3.50-5.40) L Hemoglobin 6.5 g/dL (12.0-15.5) *L Hematocrit 22.2 % (36.0-47.0) L Mean Corpuscular Volume 64 fL (79-100) L Mean Corpuscular Hemoglobin 19 pg (25-35) L Mean Corpuscular Hemoglobin Concent 29 g/dL (31-37) L Red Cell Distribution Width 19.8 % (11.5-14.5) H Platelet Count 211 x10^3/uL (140-400) Neutrophils (%) (Auto) 76 % (31-73) H Lymphocytes (%) (Auto) 16 % (24-48) L Monocytes (%) (Auto) 7 % (0-9) Eosinophils (%) (Auto) 1 % (0-3) Basophils (%) (Auto) 0 % (0-3) Neutrophils # (Auto) 6.4 x10^3/uL (1.8-7.7) Lymphocytes # (Auto) 1.3 x10^3/uL (1.0-4.8) Monocytes # (Auto) 0.6 x10^3/uL (0.0-1.1) Eosinophils # (Auto) 0.1 x10^3/uL (0.0-0.7) Basophils # (Auto) 0.0 x10^3/uL (0.0-0.2) Laboratory Tests 05/14/21 07:26 Laboratory Tests 05/14/21 07:26 Physical Exam: GENERAL: No apparent distress. Alert and oriented. HEENT: Head normocephalic, atraumatic. NECK: Supple LUNGS: Clear to auscultation. HEART: RRR, S1, S2 present, pulses intact ABDOMEN: Soft, positive bowel sounds. EXTREMITIES: No cyanosis or edema. NEUROLOGIC: Normal speech, normal tone PSYCHIATRIC: Normal affect, normal mood. SKIN: No ulceration. FFNT below umb No C/C/E Assessment & Plan: A/P 25y PPD #2 s/p 1.) PP doing well 2.) Covid vaccine given 09/05/20, 09/25/20 3.) Anemia - Hgb 7.0 -> 6.5, will give 1U pRBC 4.) Flu vaccine given 02/19/21 5.) TDAP given 03/19/21 7.) D/c home after post transfusion Hgb ZARINA HEMPHILL MD May 14, 2021 14:17
[2021-05-14 17:00] LABS: HEMATOCRIT 27.3 % (36.0-47.0)
--- NOTE | 2021-05-14 17:41 | NUR ---
Discharge Note: JOE LEROY L3 SO LND Discharge instructions and discharge home medications reviewed with Patient and a copy given. All questions have been answered and understanding verbalized. The following instructions and handouts were given: Discharge instructions post patiens Well child care worker - depression and baby blues care after vaginal delivery Patient discharged to home with self care via ambulation to private vehicle. Pt. ambulates with steady gait.
== END 2021-05-14 17:30 | disposition home or self-care (01) | DRG 807 ==
LOC: 3 SO LND 06:30 → OBSVTOIN 08:53 → 3 SO LND 08:54
PROVIDERS: ADMIT Obstetrics & Gynecology; ATTEND Obstetrics & Gynecology
PROC: 10E0XZZ Delivery of Products of Conception, External Approach (ICD-10-PCS; principal; 2021-05-12)
PROC: 3E0R3BZ Introduction of Anesthetic Agent into Spinal Canal, Percutaneous Approach (ICD-10-PCS; 2021-05-12)
PROC: 00HU33Z Insertion of Infusion Device into Spinal Canal, Percutaneous Approach (ICD-10-PCS; 2021-05-12)
PROC: 30233N1 Transfusion of Nonautologous Red Blood Cells into Peripheral Vein, Percutaneous Approach (ICD-10-PCS; 2021-05-14)
DX: O99.02 Anemia complicating childbirth (principal); Z37.0 Single live birth; D64.9 Anemia, unspecified; Z3A.37 37 weeks gestation of pregnancy; Z20.822 Contact with and (suspected) exposure to COVID-19
CPT/HCPCS: 36415; 36430; 81001; 85014; 85018; 85025; 86592; 86850; 86900; 86901; 86920; 87086; 87426; G0378; G0379; J0595; J1756; J2590; J2795; J3010; J7120; P9016; U0003